=== PATIENT | female | born 1925 | race Caucasian/White ===

== ENCOUNTER → 2016-07-25 | Outpatient (CLI) | payer OTHER | LOC: RAD 12:46 | DX: R10.9 Unspecified abdominal pain (principal) ==

== ENCOUNTER → 2017-04-23 | Outpatient (CLI) | payer OTHER | LOC: RAD 11:32 | DX: M17.12 Unilateral primary osteoarthritis, left knee (principal); M21.962 Unspecified acquired deformity of left lower leg; M85.80 Other specified disorders of bone density and structure, unspecified site; M79.605 Pain in left leg; W10.1XXA Fall (on)(from) sidewalk curb, initial encounter ==